=== PATIENT | female | born 1975 | race Caucasian/White ===

== ENCOUNTER → 2020-09-25 10:51 | Outpatient (CLI) | payer SELFPAY ==
--- NOTE | 2020-09-25 10:57 | BI_ITS ---
MAMMOGRAPHY - BILATERAL SCREENING REASON FOR EXAM: Female, 45 years old. Routine annual screening examination. PERTINENT HISTORY: Non-contributory. TECHNIQUE: Digital bilateral breast karyn (3D mammographic acquisition) in the CC and MLO projections. 2-D mediolateral oblique (MLO) and craniocaudad (CC) views of both breasts were obtained. CAD: Full Field Digital Mammography with Computer Added Detection was performed. COMPARISON: Comparison is made with prior outside examination dated 08/25/2017. FINDINGS: Breast Composition: The breasts are extremely dense, which lowers the sensitivity of mammography. There are no dominant masses or suspicious calcifications. No other significant abnormalities are identified. There has been no significant change since the prior study. BI/SCRN MAMM (CAD)W/KARYN BILAT IMPRESSION: Stable bilateral screening mammogram. Yearly follow-up mammogram recommended. (A) ASSESSMENT CATEGORY: BIRADS Category 1: Negative. A letter regarding these results will be sent to the patient by the facility within 30 days. Approximately 10% of breast cancers are not detected by mammography. A normal mammogram should not delay biopsy of a clinically suspicious abnormality. [id number] Electronically Signed: Dwight Patricia MD at 9:36 EDT , Service support ,
== END ==
PROVIDERS: PCP Family Medicine; Referring Provider Family Medicine; Visit Provider Family Medicine
DX: Z12.31 Encounter for screening mammogram for malignant neoplasm of breast (principal)
CPT/HCPCS: 77063; 77067

== ENCOUNTER → 2024-10-01 | Outpatient (CLI) | payer BC, SELFPAY ==
[2024-10-01 11:57] LABS: Hematocrit 41.2 % (37-47); Hemoglobin 13.8 g/dL (12.0-15.0); Immature Granulocytes Count 0.000 X10^3/uL (0.0-0.0); Mean Corp Hgb Conc 33.5 g/dL (32-36); Mean Corpuscular Volume 96.5 fL (81-99); Mean Platelet Vol. 9.6 fl (6.2-12.0); NRBC Flagged by Analyzer 0 % (0-5); Platelet Count 291 K/mm3 (150-450); RBC Distribution Width CV 12.8 % (11.6-14.6); RBC Distribution Width SD 45.7 fl (35.1-43.9); Red Blood Count 4.27 M/mm3 (4.2-5.4); White Blood Count 4.7 K/mm3 (4.4-11.0)
[2024-10-01 12:21] LABS: AST(SGOT) 15 U/L (<=31); Alanine Aminotransfer ALT/SGPT 13 U/L (<=34); Albumin, Serum 4.3 g/dL (3.5-5.0); Alkaline Phosphatase 41 U/L (35-104); Anion Gap 11 (5-15); BUN 14 mg/dL (4-19); BUN/Creat Ratio 19.1 RATIO (10-20); Calcium,Total 9.6 mg/dL (7.6-11.0); Carbon Dioxide 24.0 mmol/L (21.0-32.0); Chloride 103 mmol/L (98-108); Cholesterol 166 mg/dL (<=200); Globulin 2.5 g/dL (2.2-4.2); Glucose 81 mg/dL (70-99); Low Density Lipoprotein Calc. 77 mg/dL; Potassium 4.6 mmol/L (3.3-5.1); Triglycerides 47 mg/dL; Very Low Density Lipoprotein 9 mg/dL (5-40); cholesterol:hdl ratio screen 2.08
[2024-10-06 15:08] LABS: Age Gdln ACOG Testing 30-65 (.); HPV APTIMA, High Risk Negative (Negative)
== END | disposition home or self-care (01) ==
PROVIDERS: PCP Family Medicine; Referring Provider Family Medicine; Visit Provider Family Medicine
DX: Z01.419 Encounter for gynecological examination (general) (routine) without abnormal findings (principal); R53.83 Other fatigue
CPT/HCPCS: 36415; 80053; 80061; 84443; 85025; 87624; 88175; G0145

== ENCOUNTER → 2024-10-29 | Outpatient (CLI) | payer BC, SELFPAY ==
--- NOTE | 2024-10-29 08:45 | US_ITS ---
PROCEDURE: PELVIC (NON ) 10/29/2024 REASON FOR EXAM: ENLARGED UTERUS, URINARY FREQUENCY, TV ONLY IF NEEDED TECHNIQUE: Procedure Code: USP Modality: US Procedure: PELVIC (NON ). Transabdominal grayscale, color and spectral Doppler pelvic ultrasound. COMPARISON: None. FINDINGS: ENDOMETRIUM: Not visualized. UTERUS: Enlarged measuring 14.2 x 12.3 x 9.7 cm. Heterogeneous 9.4 x 10.6 x 10.3 cm myometrial lesion in the posterior body with hypervascularity. CERVIX: Normal size and contour. RIGHT OVARY: Normal size and appearance measuring 3.2 x 2.1 x 1.5 cm. Normal follicles. Normal blood flow. No adnexal mass. LEFT OVARY: Not visualized. FREE FLUID: No free fluid. US/Pelvic (Non ) IMPRESSION: Enlarged leiomyomatous uterus. Reading Location: [id number]
--- NOTE | 2024-10-29 09:44 | BI_ITS ---
EXAM: SCRN MAMM (CAD)W/KARYN BILAT DATE: 10/29/2024 CLINICAL HISTORY: F, Age 49 y/o , SCREENING TECHNIQUE: Procedure Code: [id number] Modality: MG Procedure: SCRN MAMM (CAD)W/KARYN BILAT COMPARISON: Prior exam(s) dated 09/25/2020. FINDINGS: TISSUE DENSITY: The breasts are heterogeneously dense, which may obscure small masses. The mammogram demonstrates that the patient has dense breasts. Supplemental screening with whole breast ultrasound or MRI may be considered for further evaluation. Bilateral Breast Mammographic Findings: There is an asymmetry in the superior right breast at middle depth visualized on the MLO view. There is an asymmetry in the superior right breast at posterior depth visualized on the MLO view. No significant masses, calcifications or other abnormalities are identified in the left breast. BI/SCRN MAMM (CAD)W/KARYN BILAT IMPRESSION: The asymmetries in the superior right breast at middle depth and posterior dept h visualized on the MLO view require further evaluation. Recommend diagnostic mammogram and ultrasound of the right breast. OVERALL FINAL ASSESSMENT BI-RADS 0: INCOMPLETE - NEED ADDITIONAL IMAGING EVALUATION. RECOMMENDATION: Additional Views obtained/call backs A letter with findings and recommendations will be mailed to the patient. Reading Location: [id number]
== END | disposition home or self-care (01) ==
LOC: US 08:42
PROVIDERS: PCP Family Medicine; Referring Provider Family Medicine; Visit Provider Family Medicine
DX: N85.2 Hypertrophy of uterus (principal); R35.0 Frequency of micturition; Z12.31 Encounter for screening mammogram for malignant neoplasm of breast
CPT/HCPCS: 76856; 77063; 77067

== ENCOUNTER → 2024-11-05 | Outpatient (CLI) | payer BC, SELFPAY ==
--- NOTE | 2024-11-05 09:00 | BI_ITS ---
EXAM: DIAG MAMM W/CAD, UNILAT; RT BRST UNILAT KARYN ADD-ON; BREAST LIMITED UNILATERAL 11/05/2024 CLINICAL HISTORY: F, Age 49 y/o , ABN MAMM TECHNIQUE: Procedure Code: [id number]; BIRTUNITOMO; USBRSTLIMIT Modality: MG; US Procedure: DIAG MAMM W/CAD, UNILAT; RT BRST UNILAT KARYN ADD-ON; BREAST LIMITED UNILATERAL. COMPARISON: Prior exam(s) dated 10/29/2024, 09/25/2020. FINDINGS: MAMMOGRAM: TISSUE DENSITY: The breasts are heterogeneously dense, which may obscure small masses. The mammogram demonstrates that the patient has dense breasts. Supplemental screening with whole breast ultrasound or MRI may be considered for further evaluation. Unilateral Right Breast Mammographic Findings: Follow-up examination performed for the asymmetry in the superior right breast seen on examination of 10/29/2024. On the present examination, the asymmetry in the superior right breast at middle depth does not persist. This likely represents benign overlapping fibroglandular tissue. Follow-up examination performed for the asymmetry in the superior right breast seen on examination of 10/29/2024. On the present examination, the asymmetry in the superior right breast at posterior depth does not persist. This likely represents benign overlapping fibroglandular tissues. ULTRASOUND: Ultrasound performed of the superior right breast and retroareolar right breast demonstrates no sonographic correlates for the asymmetries in the superior right breast seen on the mammogram. Otherwise, there is normal fibroglandular tissue. There are no suspicious solid masses or abnormal cystic elements. BI/Rt Brst Unilat Karyn Add-On IMPRESSION: There is no evidence of malignancy in the right breast. OVERALL FINAL ASSESSMENT BI-RADS 1: NEGATIVE RECOMMENDATION: Routine annual follow-up in 1 Year A letter with findings and recommendations will be mailed to the patient. Reading Location: [id number]
--- NOTE | 2024-11-05 09:04 | US_ITS ---
EXAM: DIAG MAMM W/CAD, UNILAT; RT BRST UNILAT KARYN ADD-ON; BREAST LIMITED UNILATERAL 11/05/2024 CLINICAL HISTORY: F, Age 49 y/o , ABN MAMM TECHNIQUE: Procedure Code: [id number]; BIRTUNITOMO; USBRSTLIMIT Modality: MG; US Procedure: DIAG MAMM W/CAD, UNILAT; RT BRST UNILAT KARYN ADD-ON; BREAST LIMITED UNILATERAL. COMPARISON: Prior exam(s) dated 10/29/2024, 09/25/2020. FINDINGS: MAMMOGRAM: TISSUE DENSITY: The breasts are heterogeneously dense, which may obscure small masses. The mammogram demonstrates that the patient has dense breasts. Supplemental screening with whole breast ultrasound or MRI may be considered for further evaluation. Unilateral Right Breast Mammographic Findings: Follow-up examination performed for the asymmetry in the superior right breast seen on examination of 10/29/2024. On the present examination, the asymmetry in the superior right breast at middle depth does not persist. This likely represents benign overlapping fibroglandular tissue. Follow-up examination performed for the asymmetry in the superior right breast seen on examination of 10/29/2024. On the present examination, the asymmetry in the superior right breast at posterior depth does not persist. This likely represents benign overlapping fibroglandular tissues. ULTRASOUND: Ultrasound performed of the superior right breast and retroareolar right breast demonstrates no sonographic correlates for the asymmetries in the superior right breast seen on the mammogram. Otherwise, there is normal fibroglandular tissue. There are no suspicious solid masses or abnormal cystic elements. US/Breast Limited Unilateral IMPRESSION: There is no evidence of malignancy in the right breast. OVERALL FINAL ASSESSMENT BI-RADS 1: NEGATIVE RECOMMENDATION: Routine annual follow-up in 1 Year A letter with findings and recommendations will be mailed to the patient. Reading Location: [id number]
== END | disposition home or self-care (01) ==
LOC: OPBI 09:01
PROVIDERS: PCP Family Medicine; Referring Provider Family Medicine; Visit Provider Family Medicine
DX: R92.8 Other abnormal and inconclusive findings on diagnostic imaging of breast (principal)
CPT/HCPCS: 76642; 77061; 77065; G0279